=== PATIENT | male | born 2000 | race Caucasian/White ===

== ENCOUNTER 2020-05-09 10:30 | Day surgery (SDC) | payer BC, SELFPAY ==
[2020-05-09] VITALS (8 sets, daily range): BP systolic 109–124; BP diastolic 53–79; PULSE 73–93; RESP 16; TEMP 36.1–37.3; O2SAT 99–100; BMI 28.8
[2020-05-09] MEDS: Lactated Ringers 1,000 ML 100 ML IV ×2 (11:10→13:00)
--- NOTE | 2020-05-09 12:53 | RAD_ITS ---
STUDY: X-RAY - LUMBAR SPINE REASON FOR EXAM: Male, 20 years old. LAMINECTOMY, DISCECTOMY L5-S1 RIGHT SIDE TECHNIQUE: 1 view(s) of the lumbar spine were obtained. COMPARISON: None FINDINGS: Intraoperative imaging provided for localization. The metallic instrument is seen overlying the posterior aspect of the L5-S1 level. RAD/Spine 1 View Any Level IMPRESSION: The metallic instrument is seen overlying the posterior aspect of the L5-S1 disc space level. Electronically Signed: Oc Collins, at 15:22 EST , Service support ,
[2020-05-09] MEDS: THROMBIN (RECOMBINANT) 20,000 UNIT VIAL 20000 UNIT TOPICAL (13:45)
--- NOTE | 2020-05-09 15:37 | OP.PCM_ITS ---
Report of Operation Date of Procedure: 05/09/20 Description of Surgical Findings:: Report of operation Preoperative diagnosis: 1. Lumbar disc herniation L5-S1, right Postoperative diagnosis: 1. Lumbar disc herniation L5-S1, right Procedure performed: 1. L5-S1 laminotomy, discectomy. Right Surgeon: Radhames Salazar DO Anesthesia: General endotracheal anesthesia IV fluids: 1200 mL Estimated blood loss: 50 mL Urine output: 350 mL Statement of medical necessity: The patient is a 20-year-old male with intract able back and right leg pain. Image studies confirm above diagnosis. He has failed conservative treatment to include: Medicine, therapy, and injections. Patient opted for operative intervention, understanding the risks to include, but not limited to, infection, bleeding, damage to nerves, arteries, and veins, possibility of spinal fluid leak, continued pain, need for further surgery, deep vein thrombosis, pulmonary embolism, heart attack, risk of stroke, or . Description of procedure: The patient was identified in the preoperative holding area. There, he received preoperative IV antibiotics and was then transferred to the operative suite. Once in the operative suite, after general endotracheal anesthesia was established, the patient was transferred to the [place] operating table in the prone position. All bony prominences were well-padded accordingly. The lumbar spine was prepped and draped in a standard surgical fashion. A midline lumbar incision was made and taken down to the lumbodorsal fascia on the right side. This was divided by subperiosteal dissection and taken down to the level of the right facet joint. Deep retractors were placed. At this point a curette was utilized in the right S1 foramen and a foraminotomy was performed using a Kerrison rongeur. The S1 nerve root was identified, and the nerve root was then retracted medially. A large subligamentous disc herniation was identified. A knife was used to perform an annulotomy and a large subligamentous disc was removed using pituitaries. Any loose fragments were identified and removed and the wound was irrigated. Tisseel was placed over the dura as a hemostatic agent. The fascia was closed with #1 Vicryl, subcutaneous was closed with 2-0 Vicryl, skin was closed with 2-0 nylon. Sterile dressing was applied with 4 x 4's, ABD pads, and tape. Sponge, instrument, and needle counts were correct at the end of the case. The patient was extubated, taken to PACU without incident.
--- NOTE | 2020-05-09 15:45 | DCINST_ITS ---
Discharge Diet: Light diet - advance as tolerated Discharge Activity: - - No bending twisting or lifting more than 5 pounds. May shower in (days): 1 - With waterproof dressing on incision Ice area for (Minutes): 20 - Ice area for 20 minutes each hour while awake Weight Bearing Status: Full weight bearing Lifting Restrictions: No lifting more than 5 pounds Additional Activity Instructions:: No bending twisting or lifting more than 5 pounds Additional Instructions: Change dressing daily with iodine applied to incision. Keep dressings clean dry and intact. Cover incision with waterproof dressing if showering. Do not bathe in bathtubs, swimming pools, hot tubs etc. follow-up with Dr. Salazar in 3 weeks for suture removal. Allergies/Adverse Reactions: Allergies ceftriaxone [From Rocephin] Allergy (Verified 05/09/20 10:46) Rash Medications to take at Discharge Hydrocodone/Acetaminophen [[place] 5-325 Tablet] 1 each PO Q6H PRN PRN 7 Days #28 tablet 05/09/20 cycloBENZAPRine HCl [Flexeril] 10 mg PO TID PRN PRN 7 Days #30 tab 05/09/20 The following prescriptions were given: cycloBENZAPRine HCl [Flexeril] 10 mg PO TID PRN PRN 7 Days #30 tab PRN Reason: Muscle Spasm Transmission Status: Pending to [facility] Hydrocodone/Acetaminophen [[place] 5-325 Tablet] 1 each PO Q6H PRN PRN 7 Days #28 tablet PRN Reason: Pain Score 6-10 Transmission Status: Pending to [facility] Primary Care Physician: Sreekanth Estrada DO [Primary Care Provider] - Test Results: Test results from this visit will be discussed in further detail at your follow- up appointment, if applicable.
--- NOTE | 2020-05-09 15:55 | SUR.PHASEI ---
DR RAMON AT BEDSIDE, OCTOBER D/C VUONG CATH NOW, PATIENT MUST VOID PRIOR TO D/C, MAY INCREASE HOB, FOLLOW D/C INSTRUCTIONS, CALL WITH CONCERNS.
--- NOTE | 2020-05-09 16:03 | PN_ITS ---
Progress Note The patient was seen and examined postoperatively in the PACU. He is resting comfortably. His pain is well controlled. He has no complaints. Alert and oriented, no acute distress Abdomen soft and nontender Extremities neurovascularly intact. No focal deficits. No edema. Dressing clean dry and intact I had a discussion with the patient. We discussed his surgery. It went very well. He will be discharged home with [place] and Flexeril prescriptions given. He will have activity restrictions including no bending twisting or lifting anyt yocasta greater than 5 pounds. Dressing changes daily with iodine. He will follow up in 3 weeks for suture removal. He understands and agrees with the treatment plan. STROKE Vital Signs/Narrative: Vital Signs Temp Pulse Resp BP Pulse Ox 05/09/20 15:45 89 16 109/53 L 100 05/09/20 15:28 96.9 F L 88 16 111/64 99
[2020-05-09] MEDS: HYDROcodone Bitartrate/Apap 5/325 Tablet PO (16:48)
[2020-05-09] MEDS: Ondansetron 4 MG/2 ML Vial IV (18:00)
== END 2020-05-09 18:36 | disposition home or self-care (01) ==
LOC: SDC 10:30 → AC 10:31
PROVIDERS: PCP Family Medicine; Referring Provider Orthopaedic Surgery; Visit Provider Orthopaedic Surgery
PROC: (CPT 63030; principal; 2020-05-09 12:00)
DX: M51.27 Other intervertebral disc displacement, lumbosacral region (principal); Z20.828 Contact with and (suspected) exposure to other viral communicable diseases; M54.16 Radiculopathy, lumbar region; M43.06 Spondylolysis, lumbar region; R03.0 Elevated blood-pressure reading, without diagnosis of hypertension
CPT/HCPCS: 00630; 63030; 72020; 76000; 87426; C9803; J7120; J2405